=== PATIENT | male | born 1990 ===

== ENCOUNTER 2022-09-20 19:57 | Emergency (ER) | payer MEDICAID, OTHER, SELFPAY ==
[2022-09-20 20:50] VITALS: BP 118/81; PULSE 73; RESP 18; TEMP 36.2; O2SAT 96; BMI 27.1
== END 2022-09-21 01:12 | disposition left against medical advice (07) ==
PROVIDERS: Emergency Provider Emergency Medicine
DX: N48.89 Other specified disorders of penis (principal)
CPT/HCPCS: 99281